=== PATIENT | male | born 1960 | race Caucasian/White ===

== ENCOUNTER → 2020-09-01 | Outpatient (CLI) | payer OTHER ==
[~2020-09-01] MED LIST: 'TENORMIN50 MG PO; ASPIRIN EC325 MG PO; GEMCOR600 MG PO; PAXIL; PAXIL40 MG PO; PERCOCET 325 MG1 TA2 PO; TAMIFLU75 MG PO; VICODIN 500 MG-1 TAB PO; VICODIN ES 7501 TAB PO; VYTORIN 10 MG-41 TA1 PO
== END | disposition home or self-care (01) ==
LOC: COVID19 09:19
PROVIDERS: ATTEND Family Medicine
DX: Z20.828 Contact with and (suspected) exposure to other viral communicable diseases (principal); R50.9 Fever, unspecified

== ENCOUNTER → 2021-06-14 | Outpatient (CLI) | payer OTHER | END | disposition home or self-care (01) | LOC: COVID19 15:52 | PROVIDERS: ATTEND Internal Medicine | DX: Z11.52 Encounter for screening for COVID-19 (principal) ==